=== PATIENT | female | born 1930 | race Caucasian/White ===

== ENCOUNTER 2018-07-05 17:36 | Inpatient (IN) ==
[2018-07-05] MEDS ORDERED: CARDIZEM IV ONE (17:49)
[2018-07-05] MEDS ORDERED: ADENOCARD ONE (17:53)
[2018-07-05] MEDS ORDERED: NS 1,000 ML ONE (17:54)
[2018-07-05 17:58] LABS: BASO# 0.03 X1000 (0.0-0.2); BASO% 0.5 % (0.0-0.8); EOS# 0.08 X1000 (0.0-0.7); EOS% 1.2 % (0.0-10.0); HEMOGLOBIN 12.8 g/dL (12.0-16.0); LYMPH# 2.86 X1000 (1.2-3.4); LYMPH% 44.3 % (20.5-51.1); MCH 29.9 PG (27-31); MCV 93.5 FL (81-99); MONO# 0.34 X1000 (0.11-0.59); MONO% 5.3 % (1.7-9.3); MPV 8.8 FL (7.4-10.4); NEUT# 3.14 X1000 (1.4-6.5); NEUT% 48.7 % (42.2-75.2); PLT 211 X1000 (130-400); RBC 4.28 XMIL (4.2-5.4); RDW 14.4 % (11.5-14.5); WBC 6.45 X1000 (4.8-10.8)
[2018-07-05] MEDS ORDERED: MORPHINE IV ONE ×2 (17:58→18:52)
[2018-07-05] MEDS ORDERED: ZOFRAN IV ONE (17:59)
[2018-07-05] MEDS ORDERED: ADENOCARD IV ONE (18:00)
[2018-07-05] MEDS ORDERED: CARDIZEM 125 MG in NS 100 ML IV PRN (18:00)
[2018-07-05] MEDS ORDERED: CARDIZEM 125 MG in D5W 100 ML IV PRN (18:05)
[2018-07-05] MEDS ORDERED: NITROGLYCERIN TOP ONE (18:10)
[2018-07-05 18:12] LABS: AGAP 13; ALB/GLOB RATIO 1.2; ALBUMIN 4.4 g/dL (3.5-5.0); ALKALINE PHOSPHATASE 66 U/L (32-104); BUN 13 mg/dL (8-22); CALCIUM 9.9 mg/dL (8.8-10.2); CHLORIDE 100 mmol/L (98-107); CK PROFILE 67 U/L (24-173); COSMO 280; CREATININE 0.8 mg/dL (0.5-0.9); ESTIMATED GFR > 60; GLUCOSE 105 mg/dL (70-104); GOT 24 U/L (10-30); GPT 10 U/L (10-36); POTASSIUM 4.2 mmol/L (3.5-5.1); SODIUM 140 mmol/L (136-145); TCO2 27 mmol/L (25-35); TOTAL BILIRUBIN 0.28 mg/dL (0.20-1.00); TOTAL PROTEIN 8.1 g/dL (6.3-8.3)
--- NOTE | 2018-07-05 19:36 | Diag Imaging Result Doc PS360 ---
EXAM: CHEST-PORTABLE 07/05/2018 HISTORY: CP TECHNIQUE: AP portable at 1924 COMMENT: There are increased interstitial markings present in the lung bases particularly in the left lower lobe. There is probable COPD. There is apical pleural thickening bilaterally. The heart size is not enlarged. IMPRESSION: Pulmonary edema and/or pneumonia. Electronically signed by Guevara Mistry 07/05/2018 7:34 PM
--- NOTE | 2018-07-05 19:43 | PROVIDER DOCUMENTATION ---
This chart was entered by Leah Cyr Scribe, acting as scribe for Dylan Radford DO. HPI-Cardiac General - General Source: patient <Dylan Radford - Last Filed: 07/05/18 19:40> <RaviIsmael Lester - Last Filed: 07/05/18 20:16> - General Chief Complaint: Palpitations Stated Complaint: TACHYCARDIAC Time Seen by Provider: 07/05/18 17:43 Allergies/Adverse Reactions: Patient Allergies Allergy/AdvReac Type Severity Reaction Status Date / Time ibuprofen Allergy Mild ABD PAIN Verified 07/24/17 17:07 Home Medications: Home Medication List Medication Instructions Recorded Confirmed Last Taken Type LISINOpril [Prinivil] 10 mg PO BID 01/21/13 07/24/17 07/23/17 History Multivitamin [Multivitamins] 1 each PO DAILY 10/06/14 07/24/17 07/24/17 History Hydrocodone/Acetaminophen [[place] 1 each PO 4XDAY PRN 07/24/17 07/24/17 07/24/17 15:00 History 10-325 Tablet] Lorazepam [Ativan] 1 mg PO QHS PRN 07/24/17 07/24/17 07/23/17 History [place]-3 Fatty Acids/Fish Oil [Fish 1 cap PO BID 07/24/17 07/24/17 07/24/17 History Oil 1,000 mg Capsule] - History of Present Illness-Cardiac Nature of Presenting Problem: 87 yof presents w/cc rapid heart rate 45min-1hr ago. pt also c/o sob, cp and elv bp. bp was 208/98 when first arriving to ed. pt in psvt, 150-160 hr. pt given Adenosine 6mg and hr dropped to 70s but pt went in afib and hr went back up. hr and bp under control now in er. pt arrived via ems. pt denies fever, chills, and nvd. (Dylan Radford) Review of Systems - Adult - REVIEW OF SYSTEMS - ADULT Constitutional: reports: no symptoms reported. denies: chills, fever, fatique Eyes: reports: no symptoms reported Ears, Nose, Mouth & Throat: reports: no symptoms reported Cardiovascular: reports: see HPI, irregular heart rate (tachy), palpitations. denies: poor circulation, PND, syncope Respiratory: reports: see HPI, shortness of breath. denies: dyspnea on exertion, excessive sputum production, wheezing Gastrointestinal: reports: no symptoms reported. denies: abdominal pain, diar irene, nausea, vomiting Genitourinary: reports: no symptoms reported Musculoskeletal: reports: no symptoms reported. denies: back pain, joint pain, muscle aches, muscle weakness Integumentary: reports: no symptoms reported Neurological: reports: no symptoms reported. denies: headache/migraines, loss of balance, syncope Psychiatric: reports: no symptoms reported Endocrine: reports: no symptoms reported Hematologic/Lymphatic: reports: no symptoms reported Allergic/Immunologic: reports: no symptoms reported All Other Systems: Reviewed and Negative <Dylan Radford - Last Filed: 07/05/18 19:40> Past History - Adult - PAST MEDICAL HISTORY-ADULT Review of Records: reports: Old Records Reviewed, Nursing Assessment Review, Medications Reviewed, Social history reviewed & non-contributory. Major Childhood Illnesses: reports: denies history Cardiovascular: reports: HTN Respiratory: reports: denies history Gastrointestinal: reports: denies history Obstetrical/Gynecological: reports: denies history Genitourinary: reports: denies history Musculoskeletal: reports: chronic pain Neurological: reports: denies history Psychiatric: reports: schizophrenia Endocrine/Immune: reports: denies history Other Conditions: reports: denies history - PRIOR SURGERIES/PROCEDURES Surgical/Procedure History: reports: appendectomy, cholecystectomy, hysterectomy , BTL, other (Abdominal surgery) - IMMUNIZATION STATUS Childhood Immunizations: See Nurse Assessment Flu Vaccine: See Nurse Assessment - FAMILY HISTORY Family History: reviewed, not pertinent - SOCIAL HISTORY Smoking: non-smoker Substance Use: none/never <Dylan Radford - Last Filed: 07/05/18 19:40> Physical Exam-General - PHYSICAL EXAM-ADULT Initial Vital Signs Reviewed: Yes - CONSTITUTIONAL General Appearance: appears well, alert, no apparent distress - EYES Eyes: PERRL/EOMI, pink conjunctivae - HEAD, EARS, NOSE, MOUTH & THROAT HENMT: normocephalic/atraumatic, moist mucous membranes, normal ENT inspection, TMs normal, pharynx normal. negative: TM abnormal, TM obscurred by cerumen, frontal tenderness, maxillary tenderness - NECK Neck: non-tender, full range of motion, supple, normal inspection. negative: C- spine tenderness, limited range of motion, tender lateral, tender midline - RESPIRATORY Respiratory: chest non-tender, normal breath sounds, no pleuratic chest pain, no respiratory distress, no accessory muscle use, crackles. negative: lungs clear, respiratory distress, decreased breath sounds, stridor, wheezing - CARDIOVASCULAR Cardiovascular: normal peripheral pulses, no edema, no gallop, JVD, tachycardia, systolic murmur (1:2). negative: regular rate, rhythm, no JVD, no murmur, diastolic murmur - GASTROINTESTINAL (ABDOMEN) Abdominal Exam: non tender, soft, abnormal bowel sounds (hyperactive), distended (mild). negative: normal bowel sounds, guarding, rigid, rebound, tenderness - LYMPHATIC Lymphatic: no adenopathy - MUSCULOSKELETAL Back Exam: normal inspection, no CVA tenderness, no vertebral tenderness, other (mild degenerative changes). negative: CVA tenderness, decreased range of motion, vertebral tenderness Extremity: normal range of motion, non-tender, pedal edema (1+ bilat pedi edema) . negative: normal inspection, no pedal edema, deformity, erythema, inflammation Peripheral Pulses: radial (R): 2+, radial (L): 2+ - SKIN Integumentary: normal color, normal turgor, warm/dry, other (small healing bruises on forearms.). negative: ecchymosis, rash, swelling, tenderness - NEUROLOGIC Neurologic: grossly normal, no motor/sensory deficits. negative: facial droop, focal weakness, motor weakness, sensory deficit - PSYCHIATRIC Psych/Mental Status: normal mood/affect, normal thought content, normal thought process, oriented x 3 <Dylan Radford - Last Filed: 07/05/18 19:40> - HEART Score HEART Score: History: Highly Suspicious HEART Score: Age: > or = 65 Years HEART Score: Risk Factors for Atherosclerotic Disease: 1 or 2 Risk Factors <Dylan Radford - Last Filed: 07/05/18 19:40> Progress - PLAN OF CARE/RESULTS Result Diagrams: 07/05/18 17:45 07/05/18 17:45 - EKG 1 Time of EKG reading by physician:: 17:39 EKG Read and Signed by:: Dylan Radford EKG Interpretation (*Must complete 3 of following elements*): Abnormal Rate: 154 Rhythm: Supraventricular tachycardia [place]: normal QRS: normal ST Wave: non-specific ST changes (ST & T wave abnormality, consider inferior ischemia) - CHANGE OF SHIFT REPORT (ED Provider) 1 Report Given and Care Transferred to:: DR MANUEL Time of Transfer: 19:42 Items Pending: Labs, XRAY Results <Dylan Radford - Last Filed: 07/05/18 19:40> - PLAN OF CARE/RESULTS Result Diagrams: 07/05/18 17:45 07/05/18 17:45 - CONSULTS/PCP/HOSPITALIST Notification #1 *Consult/PCP/Hospitalist*: Dr Alcaraz Time Discussed: 20:14 Consult Disposition: Will see in ED, Admit <Ismael Rodrigues - Last Filed: 07/05/18 20:16> - PLAN OF CARE/RESULTS Progress/Plan/Lab Results: Vital Signs - 8 hr 07/05/18 17:40 07/05/18 17:41 07/05/18 17:42 Temperature Pulse Rate 150 H 152 H 152 H Respiratory Rate 18 15 25 H Blood Pressure 203/172 203/172 O2 Sat by Pulse Oximetry 96 96 97 07/05/18 17:50 07/05/18 17:57 07/05/18 18:00 Temperature Pulse Rate 143 H 124 H 90 Respiratory Rate 20 25 H 24 Blood Pressure 172/96 O2 Sat by Pulse Oximetry 96 98 98 07/05/18 18:02 07/05/18 18:07 07/05/18 18:12 Temperature Pulse Rate 90 79 89 Respiratory Rate 24 24 18 Blood Pressure 145/71 162/76 178/106 O2 Sat by Pulse Oximetry 96 95 94 L 07/05/18 18:17 07/05/18 18:22 07/05/18 18:27 Temperature Pulse Rate 80 77 74 Respiratory Rate 32 H 23 25 H Blood Pressure 158/82 159/77 142/100 O2 Sat by Pulse Oximetry 94 L 95 95 07/05/18 18:32 07/05/18 18:37 07/05/18 18:42 Temperature Pulse Rate 75 83 84 Respiratory Rate 22 19 21 Blood Pressure 144/96 137/74 155/71 O2 Sat by Pulse Oximetry 97 94 L 94 L 07/05/18 18:47 07/05/18 18:52 07/05/18 18:57 Temperature Pulse Rate 83 75 72 Respiratory Rate 18 18 20 Blood Pressure 150/83 157/109 140/71 O2 Sat by Pulse Oximetry 96 96 95 07/05/18 19:02 07/05/18 19:07 07/05/18 19:12 Temperature Pulse Rate 83 74 94 H Respiratory Rate 16 19 18 Blood Pressure 139/68 133/64 144/66 O2 Sat by Pulse Oximetry 91 L 94 L 94 L 07/05/18 19:17 07/05/18 19:22 07/05/18 19:27 Temperature Pulse Rate 85 74 134 H Respiratory Rate 18 21 34 H Blood Pressure 144/62 137/62 157/109 O2 Sat by Pulse Oximetry 94 L 95 07/05/18 19:32 07/05/18 19:37 07/05/18 19:42 Temperature 98.1 F Pulse Rate 94 H 98 H 79 Respiratory Rate 26 H 23 22 Blood Pressure 145/83 145/66 132/71 O2 Sat by Pulse Oximetry 96 96 95 Laboratory Results - last 24 hr 07/05/18 07/05/18 07/05/18 17:45 17:45 17:45 WBC 6.45 RBC 4.28 Hgb 12.8 Hct 40.0 MCV 93.5 MCH 29.9 MCHC 32.0 L RDW Std Deviation 14.4 Plt Count 211 MPV 8.8 Immature Gran % (Auto) 0.0 Neut % (Auto) 48.7 Lymph % (Auto) 44.3 [place] % (Auto) 5.3 Eos % (Auto) 1.2 Baso % (Auto) 0.5 Immature Gran # (Auto) 0.00 Neut # (Auto) 3.14 Lymph # (Auto) 2.86 [place] # (Auto) 0.34 Eos # (Auto) 0.08 Baso # (Auto) 0.03 Sodium 140 Potassium 4.2 Chloride 100 Carbon Dioxide 27 Anion Gap 13 BUN 13 Creatinine 0.8 Estimated GFR/1.73 m2 > 60 BUN/Creatinine Ratio 16 Glucose 105 H Calculated Osmolality 280 Calcium 9.9 Total Bilirubin 0.28 AST 24 ALT 10 Alkaline Phosphatase 66 Creatine Kinase 67 Troponin T Dbd-B-Mlevsaxrleq Pept 699 H Total Protein 8.1 Albumin 4.4 Globulin 3.7 Albumin/Globulin Ratio 1.2 07/05/18 17:45 WBC RBC Hgb Hct MCV MCH MCHC RDW Std Deviation Plt Count MPV Immature Gran % (Auto) Neut % (Auto) Lymph % (Auto) [place] % (Auto) Eos % (Auto) Baso % (Auto) Immature Gran # (Auto) Neut # (Auto) Lymph # (Auto) [place] # (Auto) Eos # (Auto) Baso # (Auto) Sodium Potassium Chloride Carbon Dioxide Anion Gap BUN Creatinine Estimated GFR/1.73 m2 BUN/Creatinine Ratio Glucose Calculated Osmolality Calcium Total Bilirubin AST ALT Alkaline Phosphatase Creatine Kinase Troponin T < 0.010 Ove-H-Fzqhoktjfhm Pept Total Protein Albumin Globulin Albumin/Globulin Ratio Orders Category Date Time Status Cardiac Monitoring DIRECTED Care 07/05/18 17:44 Active IV Insertion ORDERED Care 07/05/18 17:44 Completed CHEST-PORTABLE [RAD] Stat Exams 07/05/18 19:07 Completed BNP [PRO B-NATRIURETIC PEPTIDE] Stat Lab 07/05/18 17:45 Completed CBC WITH ELECTRONIC DIFF [HEME] Stat Lab 07/05/18 17:45 Completed CK PROFILE [SP CHEM] Stat Lab 07/05/18 17:45 Completed COMPREHENSIVE METABOLIC PANEL [CHEM] Stat Lab 07/05/18 17:45 Completed TROPONIN T Stat Lab 07/05/18 17:45 Completed 0.9% Sodium Chloride Inj [Ns] 1,000 ml Med 07/05/18 17:54 Discontinued .ROUTE As directed Adenosine [Adenocard] Med 07/05/18 17:53 Discontinued 6 mg .ROUTE .STK-MED ONE Adenosine [Adenocard] Med 07/05/18 18:00 Discontinued 6 mg IV NOW ONE Dextrose 5%-Water Inj [D5w] 100 ml Med 07/05/18 18:05 Active Diltiazem [Cardizem] 125 mg IV 0 mls/hr Diltiazem [Cardizem] Med 07/05/18 17:49 Discontinued 15 mg IV NOW ONE Morphine Med 07/05/18 17:58 Discontinued 2 mg IV NOW ONE Morphine Med 07/05/18 18:52 Discontinued 2 mg IV NOW ONE Nitroglycerin Med 07/05/18 18:10 Discontinued 0.5 inch TOP NOW ONE Ondansetron [Zofran] Med 07/05/18 17:59 Discontinued 4 mg IV NOW ONE EKG [EKG] Stat Ther 07/05/18 18:03 Ordered Departure - Critical Care Note This patient required my direct & personal management of CC.: Yes Total Time (mins): 60 (PSVT TREATMENT/CP W/UP) Critical Care Statement: This patient required my direct personal management to treat or rule out processes, the absence of which, could potentiallly result in sudden, clinically significant life or limb threatening deterioration. <Dylan Radford - Last Filed: 07/05/18 19:40> - Departure Date of Disposition Decision: 07/05/18 Time of Disposition Decision: 20:14 Certified Medical Emergency: Emergent - Critical Care Note This patient required my direct & personal management of CC.: Yes <Ismael Rodrigues - Last Filed: 07/05/18 20:16> - Departure DIAGNOSIS: A-fib, SVT (supraventricular tachycardia), CHF (congestive heart failure), HTN (hypertension) Disposition: ADMITTED INPATIENT 09 Condition: Serious Referrals and Follow-Ups: John Castano MD [Primary Care Provider] - Attestation - Physician/ AYUSH Attestation Patient care was provided by Advanced Practice Provider:: No The physician spent face to face time with patient:: Yes Advanced Practice Provider documentation review:: Supervising physician onsite and consulted in the evaluation and care of this patient. The physician did have a face to face encounter with the patient. <Dylan Radford - Last Filed: 07/05/18 19:40> This chart was documented by the indicated scribe, (Leah Cyr Scribe) and accurately reflects the services I performed and decisions made by me, Dylan Radford, DO, as attested by the provider's signature.
--- NOTE | 2018-07-05 21:39 | HISTORY AND PHYSICAL ---
PRIMARY CARE PROVIDER: Dr. Castano. CHIEF COMPLAINT: Heart racing. HISTORY OF PRESENT ILLNESS: Ms. Arora is an 87-year-old female who carries a past medical history of paranoid schizophrenia, hypertension who states after taking her 96-year-old friend to his doctor's appointments and running to [employer], around 3:30 she started to feel her heart racing and could not get it to calm down, so she came to the ED. She denies any chest pain, shortness of breath, dizziness, nausea, vomiting, diarrhea. No fever. No chills. No sick contacts. She denies any cough or productive cough. Her only complaint now is a headache after receiving nitroglycerin paste and currently being uncomfortable in her bladder because she feels needs to urinate and use the restroom again. In the ED, she was found to be in SVT and atrial fibrillation. She was given adenosine and started on a Cardizem drip. We will continue to trend her cardiac enzymes, admit her to [facility]. Her heart rate is currently under control. Her blood pressure is stable. We will do a Cardiology consult in the a.m. PAST MEDICAL HISTORY: 1. Hypertension. 2. Paranoid schizophrenia. 3. Cellulitis. PAST SURGICAL HISTORY: 1. Appendectomy. 2. Cholecystectomy. 3. Hysterectomy. 4. Stomach surgery for possible nonhealing ulcer. FAMILY HISTORY: One sister who committed suicide. ALLERGIES: Ibuprofen causes abdominal pain. HOME MEDICATION: Have not been verified. However, patient states she takes lisinopril twice a day, pain medication and wlbw-rlu-jcpowni multivitamin. PHYSICAL EXAMINATION: VITAL SIGNS: Temperature is 98.1 degrees. Initial heart rate was 134, heart rate now 79, respirations 20, blood pressure 132/71, O2 is 95% on room air. GENERAL: Ms. Arora is a thin, frail appearing female who is lying on the stretcher in no acute distress. She is complaining of a headache after nitroglycerin paste, but in no acute distress. HEENT: Atraumatic, normocephalic. PERRL. NECK: Supple. Trachea midline. CARDIOVASCULAR: Irregularly irregular rhythm. No murmurs, gallops or rubs. RESPIRATORY: Lung sounds clear bilaterally. Decreased in the bases. Did not appreciate any rales, rhonchi or wheezes. GASTROINTESTINAL: Flat, soft, nontender, nondistended. Positive bowel sounds in all 4 quadrants. EXTREMITIES: Lower extremities are negative for edema. NEUROLOGIC: Patient is awake, alert, and oriented, follows commands. Moves all extremities. No focal deficits noted. SKIN: Appears to be warm, dry and intact. DIAGNOSTIC DATA: Chest x-ray: Pulmonary edema and/or pneumonia, probable COPD. LABORATORY DATA: White count 6, hemoglobin and hematocrit 12 and 40, platelet count is 211,000. Sodium 140, potassium 4.2, BUN 13, creatinine 0.8, blood glucose is 105. Troponin less than 0.010. ProBNP is 699. Albumin is 4.4. ASSESSMENT AND PLAN: 1. SVT versus atrial fibrillation. we will check a follow up EKG now and in am. We will continue patient on Cardizem drip. She is currently rate controlled. Blood pressure is stable. She does not have any history of atrial fibrillation. We will continue to trend her cardiac enzymes. Consult Cardiology in the a.m. We will check an echocardiogram and admit her to [facility]. 2. Hypertension. Patient states she takes lisinopril twice a day. We will continue when appropriate and verified. 3. Paranoid schizophrenia. Aware. 4. COPD as evidenced on chest x-ray. No exacerbation. We will continue to monitor. 5. Generalized aches and pains. The patient adamantly denies chest pain, but complains of aches and pains throughout her joints as well as a headache secondary to nitroglycerin. We will continue with p.r.n. [place]. 6. Further recommendation to follow physician evaluation, laboratory and diagnostic data and Cardiology consult. Dictated by DOMINGO Bright for Lefty Alcaraz MD I have performed a face to face diagnostic evaluation. Labs/ Xrays- reviewed. Exam- Chest- clear, CV- irregular A/P-Afib/SVT- Admit to telemetry , Cardizem drip, Cardiology consult. Dr. Alcaraz cc: MD Td Sarabia MD Amit V. Vora, MD [facility]
[2018-07-05] MEDS ORDERED: ASPIRIN PO ONE (21:40)
[2018-07-05] MEDS: PROTONIX IV SCH (22:20)
[2018-07-05] MEDS: SODIUM CHLORIDE 0.9% INJ SCH (22:31)
[2018-07-05] MEDS: ZOFRAN IV PRN (22:32)
[2018-07-05] MEDS: NORCO-7.5 PO PRN (22:32)
[2018-07-05] MEDS ORDERED: ATIVAN PO ONE (23:22)
[2018-07-05 23:38] LABS: URINE SOURCE CLEAN CATCH
[2018-07-05 23:42] LABS: BILIRUBIN URINE NEGATIVE (NEGATIVE); BLOOD URINE TRACE (NEGATIVE); COLOR STRAW; GLUCOSE URINE NEGATIVE (NEGATIVE); KETONE URINE NEGATIVE (NEGATIVE); LEUKOCYTES URINE NEGATIVE (NEGATIVE); NITRITE URINE NEGATIVE (NEGATIVE); PH URINE 7.5; PROTEIN URINE TRACE mg/dL (NEGATIVE); TURBIDITY URINE CLEAR (CLEAR); UR EPITHELIAL CELLS <10 /HPF (<10); URINE BACTERIA NEGATIVE /HPF; URINE RBC <10 /HPF (<10); URINE WBC <10 /HPF (<10); UROBILINOGEN URINE NORMAL (NORMAL)
[2018-07-06] MEDS: ZOFRAN IV PRN ×3 (01:01→20:54)
[2018-07-06] MEDS: NORCO-7.5 PO PRN (05:34)
[2018-07-06 05:47] LABS: BASO# 0.01 X1000 (0.0-0.2); BASO% 0.2 % (0.0-0.8); EOS# 0.02 X1000 (0.0-0.7); EOS% 0.3 % (0.0-10.0); HEMATOCRIT 35.3 % (37.0-47.0); HEMOGLOBIN 11.1 g/dL (12.0-16.0); LYMPH# 1.62 X1000 (1.2-3.4); LYMPH% 25.2 % (20.5-51.1); MCH 29.9 PG (27-31); MCHC 31.4 g/dL (33-37); MCV 95.1 FL (81-99); MONO# 0.28 X1000 (0.11-0.59); MONO% 4.3 % (1.7-9.3); MPV 8.9 FL (7.4-10.4); NEUT# 4.51 X1000 (1.4-6.5); PLT 212 X1000 (130-400); RBC 3.71 XMIL (4.2-5.4); RDW 14.5 % (11.5-14.5); WBC 6.44 X1000 (4.8-10.8)
[2018-07-06 05:54] LABS: PROTIME 14.1 Seconds (11.0-16.0)
[2018-07-06 05:55] LABS: PTT 30.6 Seconds (22.3-41.8)
--- NOTE | 2018-07-06 05:57 | EKG Report ---
Test Performed on : 07/05/2018 5:39:50 PM Test Reason : POST PSVT CONVERSION Blood Pressure : / mmHG Vent. Rate : 154 BPM Atrial Rate : 153 BPM P-R Int : 000 ms QRS Dur : 074 ms QT Int : 310 ms P-R-T Axes : 000 055 180 degrees QTc Int : [address] & T wave abnormality, consider inferior ischemia Abnormal ECG When compared with ECG of 24-JUL-2017 23:30, premature supraventricular complexes. are no longer present Vent. rate has increased BY [address] now depressed in Inferior leads ST now depressed in Lateral leads T wave inversion now evident in Inferior leads Nonspecific T wave abnormality now evident in Lateral leads Unconfirmed Result
[2018-07-06 06:25] LABS: AGAP 10; BUN 11 mg/dL (8-22); CHLORIDE 100 mmol/L (98-107); COSMO 275; CREATININE 0.6 mg/dL (0.5-0.9); ESTIMATED GFR > 60; GLUCOSE 104 mg/dL (70-104); MAGNESIUM 1.9 mg/dL (1.5-2.7); POTASSIUM 3.9 mmol/L (3.5-5.1); SODIUM 138 mmol/L (136-145); TCO2 28 mmol/L (25-35)
--- NOTE | 2018-07-06 06:34 | Diag Imaging Result Doc PS360 ---
CHEST-PORTABLE - 07/06/2018 INDICATION: follow up COMPARISON: 07/05/2018 FINDINGS: There has been decrease in the faint interstitial opacities in the lung bases. Stable hyperexpanded lungs compatible with COPD. No focal infiltrates. Heart size is normal. IMPRESSION: COPD. Improvement in the basilar infiltrates. Electronically signed by Lonnie Quiroz 07/06/2018 6:32 AM
--- NOTE | 2018-07-06 06:53 | EKG Report ---
Test Performed on : 07/06/2018 06:42:41 AM Test Reason : chest pain Blood Pressure : / mmHG Vent. Rate : 070 BPM Atrial Rate : 070 BPM P-R Int : 156 ms QRS Dur : 080 ms QT Int : 398 ms P-R-T Axes : 088 068 069 degrees QTc Int : 429 ms Normal sinus rhythm. Normal ECG When compared with ECG of 05-JUL-2018 17:39, (Unconfirmed) Vent. rate has decreased BY [address] no longer depressed in Inferior leads ST no longer depressed in Anterolateral leads T wave inversion no longer evident in Inferior leads Nonspecific T wave abnormality no longer evident in Lateral leads Confirmed by Omaira LIN, John ([id number]) on 07/06/2018 8:37:52 AM
[2018-07-06] MEDS: PRINIVIL PO SCH ×2 (10:10→20:50)
[2018-07-06] MEDS: PROTONIX IV SCH ×2 (10:10→20:50)
[2018-07-06] MEDS: ASPIRIN PO SCH (10:10)
[2018-07-06] MEDS: TYLENOL PO PRN ×2 (10:10→20:53)
--- NOTE | 2018-07-06 10:18 | PROGRESS NOTE ---
DATE: 07/06/2018 SUBJECTIVE: Ms. Arora was admitted with palpitations. She had atrial fibrillation, of new onset with rapid ventricular rate. She is in regular sinus rhythm occasional PAC now. She is on p.o. Cardizem. She has had a cardiology consult. She is getting her regular medications and she got 6 mg of adenosine IV yesterday in the emergency room. Overall condition is stable. We will continue with the current management on her. -2 cc: John Castano MD
--- NOTE | 2018-07-06 10:49 | CARDIOLOGY CONSULTATION ---
DATE: 07/06/2018 CONSULTATION REQUESTED BY: The hospitalist service. REASON FOR CONSULTATION: The reason is supraventricular tachycardia. CHIEF COMPLAINT: Palpitations. HISTORY: Ms. Aroar is a pleasant 87-year-old, female, who was in her usual state of health. Yesterday, she drove a friend to a doctor and, after going back home at about 3:30 to 4 p.m., she went to the bathroom, and she was in the bathroom when she experienced a sensation of "heart racing." This went on for awhile. She got nervous about it, anxious, a little short of breath and was brought to the emergency room. In the ER, they did an EKG at 5:39 p.m. that showed supraventricular tachycardia with a rate of 154 beats per minute. I believe they gave her Cardizem at that time, and the patient eventually converted to normal sinus rhythm. The patient at this time is not having any further complaints. Since her admission to the step- down cardiac unit, she is basically feeling fine, except for headache caused by nitroglycerin paste that was given to her in the emergency department. She has some chronic pain in the lower extremities for which she takes no medications. No chest pains in the recent past. She tells me that many years ago she was diagnosed with arrhythmia. PAST MEDICAL HISTORY: Positive for hypertension of mild degree. She has chronic pain. She has some issues with mental illness, previously evaluated for paranoia or paranoid schizophrenia. PAST SURGICAL HISTORY: Positive for appendectomy, hysterectomy, cholecystectomy, and I believe she has had a Billroth-2 type of surgery for gastric ulcer. FAMILY HISTORY: Her father and 2 brothers of heart attack. SOCIAL HISTORY: Her several years ago. She has never been a smoker nor a drinker. She has 4 children; three sons, one daughter. She is able to care for herself. Currently she is looking after a good friend of hers, and that has been putting some stress on her. HOME MEDICATIONS: 1. Lisinopril 10 twice a day. 2. Lorazepam 1 mg at bedtime. 3. Multivitamin and hydrocodone as needed. REVIEW OF SYSTEMS: She has no major history of heart disease, other than episode of arrhythmia many years ago. No history of pulmonary disease. History of a gastric ulcer many years ago status post surgery. She has probably osteoporosis with chronic limb and bone pain. She has no genitourinary issues. No current neurological issues. She has had psychiatric illness that has been managed before. At this time, she is functioning well. She has no immunological disorders. No metabolic conditions like diabetes or gout. Her thyroid profile is normal. PHYSICAL EXAM: Vital Signs: Today blood pressure is 161/68, temperature 97.5 degrees, pulse 72, respirations 18. Physical exam: She appears to be in no distress, elderly. She is quite slender. Her weight is 99 pounds; body mass index is 15.5. Neck: Neck veins are not distended. No cervical bruits. Chest: Her chest is clear to auscultation and percussion. Heart: Heart sounds are regular rhythm. I do not hear a gallop or murmur. Abdomen: Nontender. Scaphoid. Extremities: Showed decreased pulses. No peripheral edema. Neurological exam: Follows commands. Moves 4 extremities. BLOOD WORK: Her sodium is 138, potassium 3.9, BUN 11 and creatinine 0.6. IMPRESSION: 1. Patient with episode of paroxysmal supraventricular tachycardia. This has reversed with medication given in the emergency room. 2. History of hypertension. 3. History of chronic pain. 4. History of psychiatric illness, presumably paranoid schizophrenia. RECOMMENDATION: At this time, the patient will be treated with low dose oral Cardizem, and we will see how she does. At this point in time, I do not think she needs to be anticoagulated, and in fact she is probably a poor candidate for anticoagulation given the fact that she is underweight/possibly malnourished. We will review the echocardiogram that has been requested by the hospitalist service, and if it is normal and the patient is stable, she could probably go home tomorrow morning with instructions to follow up at the office. cc: MD John Brown MD
[2018-07-06] MEDS: CARDIZEM PO SCH ×3 (11:00→20:51)
[2018-07-06] MEDS: NORCO-10 PO PRN ×2 (11:49→18:11)
--- NOTE | 2018-07-06 14:27 | ECHO REPORT ---
ORDER DATE: 07/06/2018 INTERPRETING PHYSICIAN: Dr. Td Shaw. ECHOCARDIOGRAPHIC MEASUREMENTS: 1. Interventricular septum: 1.0 cm. 2. Left ventricular posterior wall: 1.0 cm. 3. Diastolic diameter: 4.1 cm. 4. Left atrium: 3.7 cm. 5. Aorta: 3.1 cm. SUMMARY OF THE 2-DIMENSIONAL IMAGIN. Aortic valve leaflets were trileaflet, mildly sclerosed, opening normally. 2. Pulmonic valve was normal. There is mild pulmonary regurgitation. 3. Tricuspid valve was normal. 4. Mitral valve was normal. 5. There is moderate tricuspid regurgitation. Peak velocity across the tricuspid valve was 3.7 m/sec. Pulmonary artery systolic pressure of 64 mmHg. 6. There is mild mitral regurgitation. 7. Peak velocity across the aortic valve was less than 2 m/sec. There is no aortic stenosis. There is aortic sclerosis associated with [id number] aortic regurgitation. 8. Normal left ventricular cavity size. Estimated ejection fraction of 65%. There is diastolic dysfunction. 9. There is left atrial enlargement. 10. There is no pericardial effusion or obvious intracardiac mass or thrombus seen. cc: MD John Chinchilla MD
[2018-07-06] MEDS: SODIUM CHLORIDE 0.9% INJ SCH (20:50)
[2018-07-06] MEDS: ATIVAN PO PRN (20:51)
[2018-07-07] MEDS: CARDIZEM PO SCH ×4 (01:50→20:25)
[2018-07-07] MEDS: NORCO-10 PO PRN ×3 (05:32→17:13)
[2018-07-07] MEDS: TYLENOL PO PRN (05:32)
[2018-07-07] MEDS: ASPIRIN PO SCH (08:05)
[2018-07-07] MEDS: PROTONIX IV SCH ×2 (08:05→20:25)
[2018-07-07] MEDS: ZOFRAN IV PRN (08:05)
[2018-07-07] MEDS: PRINIVIL PO SCH ×2 (08:05→20:26)
--- NOTE | 2018-07-07 09:09 | PROGRESS NOTE ---
DATE: 07/07/2018 SUBJECTIVE: Ms. Arora is sick in the stomach. She threw up this morning, feels very nauseous, has intermittent headache, which could be induced by the nitrates that she was given yesterday. Nitrates have been stopped. She is on diltiazem 30 mg every 6 hours which has turned her into sinus rhythm. We are going to watch her closely. I discussed with Dr. Jimenez, and he thinks because of her very thin stature, very low BMI and chronic schizophrenia, it is not a good idea to put her on blood thinner at the present time. We will watch her closely today. Echocardiogram has been done. cc: John Castano MD
[2018-07-07] MEDS ORDERED: PHENERGAN IM PRN (10:20)
--- NOTE | 2018-07-07 12:19 | CARDIOLOGY PROGRESS NOTE ---
DATE: 07/07/2018 CHIEF COMPLAINT: Irregular heartbeat, shortness of breath, nausea. SUBJECTIVE: Still not feeling well. She has some headache. She has had some nausea. No chest pains as such. OBJECTIVE: Vital signs: Blood pressure right now is 152/61, temperature 98 degrees, pulse 71, respirations 14. General: The patient is awake, alert, oriented, no distress. HEENT: Unremarkable. Chest: Diffuse diminished breath sounds. Heart: Sounds are regular and rhythmic. I do not hear a gallop or murmur. Abdomen: Nontender. Extremities: Show decreased pulses. No edema. Neurologic exam: Follows commands, moves all 4 extremities. BLOOD WORK: This is from yesterday, sodium 138, potassium 3.9, BUN 11, creatinine 0.6. IMPRESSION: 1. Patient who presented with supraventricular tachycardia. This has resolved. 2. Patient with hypertension. 3. History of mental illness. RECOMMENDATIONS: At this point in time, I would suggest to continue diltiazem at low dose. We may want to give her something like Carafate coating agent to help her with the nausea. I would consider doing arterial blood gas and a CT scan of the chest without contrast to make sure that there is no significant hypoxemia. I am concerned about the report of the echocardiogram that indicates pulmonary hypertension with normal left ventricular systolic function. That may suggest chronic lung disease. Will follow her. cc: MD John Brown MD
[2018-07-07 13:34] LABS: ALLEN TEST YES; BLOOD TYPE ARTERIAL; O2(CT) 16.6 mL/dL (15.0-23.0); O2HB 93.7 % (95.0-99.0); PCO2(98.6) 48 mmHg (35-45); PO2(98.6) 71 mmHg (60-100); SAMPLE BLOOD; SAO2 97.4 % (95.0-100.0); THB 12.6 g/dL (11.5-17.4)
[2018-07-07 13:35] LABS: MODALITY ROOM AIR
--- NOTE | 2018-07-07 14:17 | Diag Imaging Result Doc PS360 ---
CT THORAX W/O CONTRAST - 07/07/2018 INDICATION: abnormal chest X Ray COMPARISON: Chest x-ray 07/06/2018, chest CT 03/16/2014 FINDINGS: There is a stable round nodular opacity in the right middle lobe. This is irregular and ill-defined with spiculation. This measures about 2.1 cm. However its stability over time indicates this is most likely benign. There has been significant decrease in the substantial tree-in-bud nodular infiltrates in the lung bases bilaterally. There is mild COPD. Airways are patent. Heart size is normal with no pericardial effusion. No pneumothorax or pleural effusion. There are cholecystectomy clips. Upper abdominal images are otherwise unremarkable. There are moderate degenerative changes of the spine. No acute or suspicious bony lesion. IMPRESSION: 1. Stable tumefactive scarring in the right middle lobe. 2. Improvement in the widespread tree-in-bud nodular infiltrates in the lung bases. Compatible with endobronchially spread infection such as chronic atypical mycobacteria or aspiration. 3. COPD. This exam was performed using automated exposure control, adjustment of mA or kV according to patient size, and/or use of iterative reconstruction technique Electronically signed by Lonnie Quiroz 07/07/2018 2:15 PM
[2018-07-07] MEDS: CARAFATE LIQUID PO SCH ×2 (14:19→20:25)
[2018-07-07] MEDS: SODIUM CHLORIDE 0.9% INJ SCH (20:25)
[2018-07-07] MEDS: ATIVAN PO PRN (20:38)
[2018-07-08] MEDS: CARDIZEM PO SCH (02:27)
[2018-07-08] MEDS: CARAFATE LIQUID PO SCH ×2 (02:27→08:35)
[2018-07-08] MEDS: TYLENOL PO PRN (02:50)
[2018-07-08] MEDS: NORCO-10 PO PRN ×2 (02:51→08:39)
[2018-07-08 07:39] VITALS: BP 131/47
[2018-07-08] MEDS: PROTONIX IV SCH (08:33)
[2018-07-08] MEDS: PRINIVIL PO SCH (08:33)
[2018-07-08] MEDS: ASPIRIN PO SCH (08:34)
[2018-07-08] MEDS ORDERED: CARDIZEM CD PO SCH (09:00)
--- NOTE | 2018-07-08 09:07 | PROGRESS NOTE ---
DATE: 07/08/2018 SUBJECTIVE: Ms. Arora is doing better. She is not sick in the stomach. OBJECTIVE: CT scan of the chest shows presence of emphysema. PLAN: I am going to discharge her with a prescription of Cardizem 30 mg 3 times a day. She will be discharged today. She has atrial fibrillation, paroxysmal. -4 cc: John Castano MD
--- NOTE | 2018-07-08 09:40 | DISCHARGE SUMMARY ---
ADMISSION DATE: 07/05/2018 DISCHARGE DATE: 07/08/2018 HISTORY AND HOSPITAL COURSE: Ms. Arora was admitted with atrial fibrillation with rapid ventricular rate. She had a chest x-ray, which revealed presence of COPD and basilar infiltrates. She was in atrial fibrillation when she came in with rapid ventricular rate. She was placed on Cardizem drip, and the heart rate got under control. She had a Cardiology consult. CT scan of the chest was ordered. ABGs are unremarkable. CT of the chest showed presence of COPD. She had some evidence of mild pulmonary hypertension as noted on the echocardiogram. She was evaluated by Dr. Jimenez, who thought that on account of her very thin stature and the mental status, we do not need to put her on blood thinners. Will continue with current management, and give her Cardizem CD 120 mg once daily, Protonix 40 mg daily as she had the episodes of sick stomach and vomiting. We will discharge her today. I will see her in the office in about 7 days. cc: John Castano MD
--- NOTE | 2018-07-08 11:31 | CARDIOLOGY PROGRESS NOTE ---
DATE: 07/08/2018 CHIEF COMPLAINT: Nausea, palpitations, shortness of breath. SUBJECTIVE: Mrs. Arora is feeling better today. She is not having stomach upset as she did. She is not having any chest pain. We did a CT of the chest yesterday because of her weakness and weight loss. The study shows a lesion in the right middle lobe that appears to be compatible with a scar and it has been there for the past 4 years indicating that it is a stable lesion. In addition, there was improvement on a widespread tree-in-bud nodular infiltrate that was noted on previous CT from March 2014. There is evidence of COPD. We did arterial blood gases that showed in room air a pO2 of 71, pCO2 of 48, pH of 7.4. Her telemetry shows sinus rhythm. There has been no more arrhythmia. OBJECTIVE: Vital signs: Her vital signs today showed a blood pressure of 131/47, temperature 98.2, pulse 64, respirations 14. General: She is awake, alert, in no distress. She appears to be comfortable. HEENT: Unremarkable. Chest: Diffusely diminished breath sounds. Heart: Sounds are regular and rhythmic. I do not hear a gallop or murmur. Abdomen: Scaphoid. Extremities: Showed decreased pulses. No edema. Neurologic exam: Follows commands, moves all 4 extremities. IMPRESSION: 1. Patient who presented with paroxysmal supraventricular tachycardia. This has not recurred. 2. Clinical and radiographic evidence of chronic obstructive pulmonary disease with a stable lesion in the right middle lobe for the past 4 years. That is consistent with a previous scar. 3. History of hypertension. 4. History of paranoid schizophrenia or similar syndrome. RECOMMENDATIONS: At this point in time, her seemingly gastritis-like symptoms have improved. She is more comfortable and I think she may be discharged home. I would suggest to keep her on a low- dose of diltiazem for example CD 120 and we will be more than happy to see her at the office. Dr. Castano will follow her per usual schedule. cc: MD John Brown MD
--- NOTE | 2018-07-12 21:00 | DISCHARGE SUMMARY ---
ADMISSION DATE: 07/05/2018 DISCHARGE DATE: 07/08/2018 ADDENDUM: Is pertaining to the fact that she had protein caloric malnutrition, severe malnutrition during her stay here. She has been having malnutrition . We have advised her to drink some Ensure every day on a daily basis for a long time which she does not pursue with that advice. cc: John Castano MD MTDD
== END 2018-07-08 11:50 | disposition home or self-care (01) | DRG 308 ==
LOC: SUPCPDRO → ED 17:36 → EDIPHOLD 20:32 → SUATTDRO 20:32 → 3S 23:23
PROVIDERS: ADMIT Internal Medicine; ATTEND Internal Medicine
CPT/HCPCS: 71010; 71045; 71250; 80048; 80053; 81001; 82550; 82805; 83735; 83880; 84443; 84484; 85025; 85610; 85730; 93005; 93010; 93306; 96365; 96366; 96375; 96376; 99285; 99291; A9270; C9113; J0150; J0153; J2270; J2405; J2550; J7030; J7060; S0164